=== PATIENT | female | born 1985 | race Caucasian/White ===

== ENCOUNTER 2025-02-08 00:58 | Emergency (ER) | payer MEDICARE, MEDICAID ==
[~2025-02-08] VITALS: Ht 152.4 cm; Wt 77.2 kg
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
--- NOTE | 2025-02-08 02:17 | ECG ---
[facility] Test Date: 2025-02-08 Test Time: 01:06:18 Pat Name: VALARIE LEON Department: Room: Gender: F Writer: JEANINE : 1985 Requested By: JERSON JENSEN Order Number: [id number] Reading MD: Rodríguez Virk Measurements Intervals [place] Rate: 116 P: 57 NH: 145 QRS: 47 QRSD: 70 T: 28 QT: 337 QTc: 469 Interpretive Statements Sinus tachycardia Low voltage, precordial leads Probable anteroseptal infarct, old Minimal ST depression Electronically Signed On 02-09-2025 16:42:28 PDT by Rodríguez Virk Please click the below link to view image of tracing.
[2025-02-08] MEDS: ALBUTEROL SULF 2.5 MG/0.5ML(0.5%) NEB SOLN NEB ONE (02:59)
[2025-02-08 03:48] VITALS: BP 131/75; PULSE 95; RESP 19; TEMP 97.7; O2SAT 97
== END 2025-02-08 04:27 | disposition home or self-care (01) ==
LOC: ER 00:58 → EDBD 00:58 → ER 04:27
DX: S51.011A Laceration without foreign body of right elbow, initial encounter (principal); T59.811A Toxic effect of smoke, accidental (unintentional), initial encounter; J98.01 Acute bronchospasm; G80.9 Cerebral palsy, unspecified; I50.9 Heart failure, unspecified; Z93.3 Colostomy status; Z99.3 Dependence on wheelchair; X58.XXXA Exposure to other specified factors, initial encounter; Y93.89 Activity, other specified; Y92.89 Other specified places as the place of occurrence of the external cause; Y99.8 Other external cause status
CPT/HCPCS: 12001; 93005; 94640